=== PATIENT | female | born 1980 ===

== ENCOUNTER 2025-05-01 09:57 | Emergency (ER) | payer MEDICAID, SELFPAY ==
[2025-05-01 10:03] VITALS: BP 128/78; PULSE 78; O2SAT 98
[2025-05-01 10:09] VITALS: BP 127/85; PULSE 100; RESP 16; TEMP 36.8; O2SAT 99; BMI 31.8
[2025-05-01 10:46] LABS: MANUAL DIFF FLAG NO
[2025-05-01 10:50] LABS: Hematocrit 46.1 % (37.0-47.0); Hemoglobin 15.1 g/dl (12.0-16.0); Imm Gran Abs Auto 0.04 X10*3/uL (0.00-0.03); Imm Gran Pct Auto 0.4 % (0.0-0.4); Lymphocytes Absolute Auto 1.6 X10*3/uL (1.2-4.9); Mean Corpuscular HGB Conc 32.8 g/dl (31.0-35.0); Mean Corpuscular Hemoglobin 27.9 pg (27.0-33.0); Mean Corpuscular Volume 85.1 fL (80.0-98.0); NRBC Abs Auto 0.000 X10*3/uL (0.0-0.012); NRBC Pct Auto 0.0 /100WBC (0.0-0.2); Platelet Count 363 X10*3/uL (160-400); Red Blood Count 5.42 X10*6/uL (4.20-5.50); White Blood Count 10.4 X10*3/uL (4.8-10.8)
[2025-05-01 10:56] LABS: IDNOW Serial# 55D5AD1C
[2025-05-01 10:57] LABS: Strep A Nucleic Acid Positive (Negative)
[2025-05-01 11:02] LABS: Alanine Aminotransferase 28 U/L (0-31); Albumin Level 4.8 g/dL (3.5-5.0); Alkaline Phosphatase 151 U/L (39-117); Anion Gap 13 (12-20); Aspartate Amino Transferase 25 U/L (5-31); Blood Urea Nitrogen 8 mg/dL (9-16); Calcium 9.6 mg/dL (8.4-10.2); Carbon Dioxide 29 mmol/L (22-29); Chloride 103 mmol/L (96-108); Creatinine Clr Calc Pharmacy 140.1; Estimated Glomerular Filt Rate > 60; Magnesium 2.1 mg/dL (1.6-2.6); Potassium 3.6 mmol/L (3.3-5.1); Sodium 141 mmol/L (135-145); Total Protein 7.9 g/dL (6.5-8.0)
[2025-05-01 11:53] VITALS: BP 136/86; PULSE 95; RESP 18; TEMP 37.1; O2SAT 99
--- NOTE | 2025-05-01 11:53 | ED.GENADULT ---
HPI - General Adult General Chief complaint: General Medical Stated complaint: THROAT PAIN AND SWELLING Time Seen by Provider: 05/01/25 11:53 Source: patient Mode of arrival: ambulatory Limitations: no limitations (States that she is not able to talk, has been writing things down) History of Present Illness ED Provider: HPI narrative: This is a 44-year-old woman with history of type 2 diabetes, currently stays at [place] [address], states that on April 25 started developing sore throat, on the she went to [facility], at that point she left because the waiting times were too long and she checked in the phone and she tested positive for strep throat, she states that PCP is not able to see her and so she utilized virtual urgent Care appy from my understanding I am not sure what the communication was but she was told that she needs to be seen in the emergency department and admitted for IV antibiotics and IV fluids. She reports subjective fevers. Related Data Previous Rx's ?Medication ?Instructions ?Recorded cefdinir 250 mg/5 mL oral 300 mg (6 mL) PO BID 10 days #120 05/01/25 suspension mL lidocaine HCl 2 % mucosal solution 2.5 ml mucous membrane BID PRN 05/01/25 mouth pain 7 days #100 mL Allergies Allergy/AdvReac Type Severity Reaction Status Date / Time Penicillins Allergy Unknown Verified 05/01/25 10:13 sulfamethoxazole (From Allergy Unknown Verified 05/01/25 10:13 Bactrim) trimethoprim (From Bactrim) Allergy Unknown Verified 05/01/25 10:13 Review of Systems Constitutional: Constitutional: Reports as per [facility] Social History Social History Alcohol intake: current Alcohol intake frequency: a few times a month Smoked in Last 30 Days: No Use of substances other than those prescribed or required for medical reasons: No Advance Directives: No Advance Directives Information Provided: Yes Patient : No Physical Exam ED Vital Signs: Vital Signs - 24 hr 05/01/25 10:09 05/01/25 11:53 05/01/25 12:58 Temperature 98.2 F 98.8 F 98.1 F Pulse Rate 100 95 93 Respiratory Rate 16 18 18 Blood Pressure 127/85 136/86 125/89 Pulse Oximetry 99 99 98 Oxygen Delivery Method Room Air Room Air Room Air 05/01/25 13:32 Temperature 98.1 F Pulse Rate 93 Respiratory Rate 18 Blood Pressure 125/89 Pulse Oximetry 98 Oxygen Delivery Method Room Air BMI result Body Mass Index 31.8 Const Other: Gen: ?Overall well-appearing patient, no trismus HEENT: Able to open her mouth fully, decent dentition, uvula is midline, slightly erythematous tonsils with right-sided exudates, floor of the mouth is soft Neck: No subcutaneous emphysema, palpable landmarks, reports tenderness in the submandibular area CV: RRR, no obvious murmurs appreciated Resp: ?No wheezing rales rhonchi no stridor moving air well Abd: ?Bowel sounds are present, no tenderness no rebound no rigidity Skin: Warm, dry, intact, Neuro: ?Alert and oriented x3, moving upper and lower extremities symmetrically, no obvious facial asymmetry noted Medical Decision Making Medical Decision Making MDM Narrative: Patient evaluated, clinically she is looking very well, she is able to fully open her mouth, uvula is midline, she has non kissing tonsils, with slight erythema and exudates mostly on the right side, she tested positive for strep throat, her blood work is reassuring, she has no fevers, no ongoing tachycardia, no leukocytosis, negative lactate, nothing to indicate that she has ongoing sepsis due to deep space infection of the oropharynx, she insists on not being able to talk and reports odynophagia, I discussed management with her she is set on stating that she needs to be admitted for IV antibiotics as she is not able to swallow well antibiotics, clinically there was no evidence why patient should not be able to swallow pills, she has no evidence for advanced airway infection that would require either an admission or advanced imaging such as CT with IV contrast. Her blood work does not support any evidence for dehydration, she does not appear to be cachectic or deprived of nutrition. I offered for the patient to have her 1st dose of antibiotics in the emergency department to which she declined, then she would like me to send her medications to [facility] as they are going to be able to deliver to her hotel where she is staying at. I spent a bit of time discussing with the patient that she just does not meet criteria for admission and that IV antibiotics do not work any different than oral antibiotics that she should be able to take. 0136pm: Patient did not want to leave the hospital after discharge, and was escorted out by security, interestingly enough but not surprisingly she was speaking very loudly without any phonation issues however throughout our visit she insisted on writing things down. Differential Diagnosis Differential Diagnoses: The differential diagnosis associated with the presentation includes Peritonsillar abscess, Jaylon's angina, thrush, tonsillitis, deep space infection of the neck, epiglottitis Admission/Observation Consideration of admission/observation: Escalation of care including admission/observation considered Lab Data MDM Lab Attestation statement: I reviewed the patient's lab results. 05/01/25 10:37 05/01/25 10:37 Labs: Lab Results 05/01/25 Range/Units 10:37 WBC 10.4 (4.8-10.8) X10*3/uL RBC 5.42 (4.20-5.50) X10*6/uL Hgb 15.1 (12.0-16.0) g/dl Hct 46.1 (37.0-47.0) % MCV 85.1 (80.0-98.0) fL MCH 27.9 (27.0-33.0) pg MCHC 32.8 (31.0-35.0) g/dl RDW 13.7 (11.0-16.0) % Plt Count 363 (160-400) X10*3/uL MPV 8.7 L (9.4-12.3) fL Immature Gran % (Auto) 0.4 (0.0-0.4) % Neut % (Auto) 77.8 H (45-73) % Lymph % (Auto) 15.1 L (20-40) % Smyth % (Auto) 4.8 (2-11) % Eos % (Auto) 1.5 (0-4) % Baso % (Auto) 0.4 (0-2) % Lymph # (Auto) 1.6 (1.2-4.9) X10*3/uL Smyth # (Auto) 0.5 (0.1-1.2) X10*3/uL Eos # (Auto) 0.2 (0.0-0.4) X10*3/uL Baso # (Auto) 0.0 (0.0-0.2) X10*3/uL Abs Immat Gran (auto) 0.04 H (0.00-0.03) X10*3/uL Absolute Neuts (auto) 8.1 (2.0-8.3) x10*3/uL Absolute Nucleated RBC 0.000 (0.0-0.012) X10*3/uL Nucleated RBC % (auto) 0.0 (0.0-0.2) /100WBC Sodium 141 (135-145) mmol/L Potassium 3.6 (3.3-5.1) mmol/L Chloride 103 (96-108) mmol/L Carbon Dioxide 29 (22-29) mmol/L Anion Gap 13 (12-20) BUN 8 L (9-16) mg/dL Creatinine 0.65 (0.5-1.4) mg/dL Estim Creat Clear Calc 140.1 Estimated GFR > 60 Random Glucose 121 H (60-115) mg/dL Lactic Acid 1.9 (0.5-2.0) mmol/L Calcium 9.6 (8.4-10.2) mg/dL Magnesium 2.1 (1.6-2.6) mg/dL Total Bilirubin 0.3 (0.0-1.0) mg/dL AST 25 (5-31) U/L ALT 28 (0-31) U/L Alkaline Phosphatase 151 H (39-117) U/L Total Protein 7.9 (6.5-8.0) g/dL Albumin 4.8 (3.5-5.0) g/dL S. pyogenes GrpA RENEE Positive A (Negative) Discharge Plan Discharge Clinical Impression: Strep sore throat Patient Disposition: Home, Self-Care Instructions: Strep Throat (ED) Additional Instructions: Evaluated with a sore throat, positive with strep throat at [facility] as well as [facility], I have discussed with the you that there is no indication for admission, IV antibiotics will not work any faster for this and there was no evidence that you were having any deep space infection of the oropharynx based on physical examination, your vital signs reassuring, you have no fevers, no abnormal other vital signs, your blood work is unremarkable, you did have blood cultures that were drawn as well if these are positive you going to get a phone call. This is very much unlikely. There is really no reason for you to not take antibiotics, I am providing you with antibiotic oral suspension, this will not cause any discomfort, as you are able to tolerate liquids, in case you have discomfort in the throat you can gargle with lidocaine hydrochloride 2% solution 10 minutes before taking the antibiotics suspension. At that point your throat will be numb. You can continue hydrating with fluids as you has been able to do so, there was no evidence for dehydration based on exam or your blood work, and if you feel that food is irritating her throat you can blenderized your food or just stick to soups that we will have enough substance until your throat resolves. Also please call your PCP's office and make an appointment to see them, re-evaluation by virtual clinician is not adequate and is not recommended. Any other issues or concerns come back to the ER for re-evaluation. Prescriptions: New lidocaine HCl 2 % solution 2.5 ml mucous membrane BID PRN (Reason: mouth pain) 7 Days Qty: 100 0RF Rx Instructions: gargle and spit twice daily as needed prior to taking antibiotics cefdinir 250 mg/5 mL suspension for reconstitution 300 mg PO BID 10 Days Qty: 120 0RF Interventions: ED Discharge Assessment Last Done: 05/01/25 13:32 Discharge Date/Time: 05/01/25 13:34 Print Language: Yoruba
--- NOTE | 2025-05-01 12:08 | PC.NURSE ---
44 F presents to ED with throat pain/swelling, LUQ pain, headache since April 25. Sts seen April 28 at [facility], was positive for strep but not started on abx. Sts has gotten worse since, hurts to talk, voice sounds hoarse. A+Ox4, a bit anxious but cooperative.
[2025-05-01 12:58] VITALS: BP 125/89; PULSE 93; RESP 18; TEMP 36.7; O2SAT 98
--- NOTE | 2025-05-01 13:29 | PC.NURSE ---
attempted to d/c the pt, pt is refusing to be d/c states she wants and needs to be admitted and that pt reports that security will be needed to escort her out, md aware-and the md states no admission at this time, pt's blood work is table and vs stable at this time security was called and pt escorted and pt refused to sign her d/c paperwork, iv removed
[2025-05-01 13:32] VITALS: BP 125/89; PULSE 93; RESP 18; TEMP 36.7; O2SAT 98
== END 2025-05-01 13:34 | disposition home or self-care (01) ==
PROVIDERS: Emergency Provider Emergency Medicine
DX: J02.0 Streptococcal pharyngitis (principal); E11.9 Type 2 diabetes mellitus without complications
CPT/HCPCS: 80053; 83605; 83735; 85025; 87040; 87651; 99283; 99284